=== PATIENT | male | born 1995 | race African-American/Black ===

== ENCOUNTER 2025-03-26 18:26 | Emergency (ER) | payer SELFPAY ==
[2025-03-26] MEDS ORDERED: Sodium Chloride 0.9% 10 ML Syringe FLUSH PRN (19:03)
[2025-03-26 19:10] LABS: BASOPHILS ABSOLUTE AUTO 0.0 K/mm3 (0.0-0.2); BASOPHILS PERCENT AUTO 0.7 % (0.0-1.0); EOSINOPHILS ABSOLUTE AUTO 0.1 K/mm3 (0.0-0.4); EOSINOPHILS PERCENT AUTO 2.9 % (0.0-6.0); IMMATURE GRAN ABSOLUTE AUTO 0.01 K/mm3 (0.00-0.05); IMMATURE GRAN PERCENT AUTO 0.2 % (0.0-0.4); LYMPHOCYTES ABSOLUTE AUTO 1.9 K/mm3 (1.0-4.8); LYMPHOCYTES PERCENT AUTO 42.0 % (24.0-44.0); MEAN PLATELET VOLUME 9.9 fl (9.4-12.4); MONOCYTES ABSOLUTE AUTO 0.4 K/mm3 (0.0-0.8); MONOCYTES PERCENT AUTO 8.4 % (0.0-8.0); NEUTROPHILS ABSOLUTE AUTO 2.0 K/mm3 (1.8-7.7); NEUTROPHILS PERCENT AUTO 45.8 % (41.0-71.0); NRBC ABSOLUTE 0.00 (0.00-0.02); NRBC PERCENT 0.0 % (0.0-0.2); PLATELET COUNT,PLT 438 K/mm3 (150-400); RED BLOOD CELL COUNT 5.19 M/mm3 (4.52-5.90); WHITE BLOOD CELL COUNT,WBC 4.41 K/mm3 (3.9-11.3)
[2025-03-26 19:11] LABS: APPEARANCE,URINE CLEAR (Clear); GLUCOSE,URINE NEGATIVE (Negative); OCCULT BLOOD,URINE NEGATIVE (Negative)
[2025-03-26 19:19] LABS: A/G RATIO 1.0 (1-2); ALANINE AMINOTRANSFERASE,ALT 44.0 U/L (16-63); ASPARTATE AMNIOTRANSFERASE,AST 33.0 U/L (15-37); BILIRUBIN TOTAL 0.4 mg/dL (0.2-1.0); BLOOD UREA NITROGEN,BUN 13.0 mg/dL (7-18); CARBON DIOXIDE,CO2 24.0 mEq/L (21-32); CHLORIDE,CL 104.0 mEq/L (98-107); CREATININE 1.2 mg/dL (0.7-1.3); EST CRCL DRUG DOSING (CG) 95.87 mL/min; ESTIMATED GFR 83.0 mL/min (>60); GLUCOSE RANDOM 88.0 mg/dL (70-99); POTASSIUM,K 4.1 mEq/L (3.5-5.1); PROTEIN TOTAL,TP 7.7 g/dl (6.4-8.2); SODIUM,NA 138.0 mEq/L (136-145)
[2025-03-26 19:21] LABS: EPITHELIAL CELLS,URINE 0-5 /hpf (0-5)
[2025-03-26] MEDS: Iopamidol 612 MG/ML 100 ML Bottle IVPUSH ONE (19:36)
[2025-03-26] MEDS: Sodium Chloride 0.9% 10 ML Syringe FLUSH ONE (19:36)
== END 2025-03-26 21:41 | disposition home or self-care (01) ==
LOC: JD.ED 18:26
DX: K27.9 Peptic ulcer, site unspecified, unspecified as acute or chronic, without hemorrhage or perforation (principal); Z79.899 Other long term (current) drug therapy
CPT/HCPCS: 36415; 74177; 80053; 81001; 83690; 85025; 96374; 99284; J2470; J7030; Q9967; 99283